=== PATIENT | male | born 1930 | race Caucasian/White ===

== ENCOUNTER 2017-01-29 15:09 | Inpatient (IN) | payer OTHER ==
[~2017-01-29] VITALS: Ht 182.9 cm; Wt 92.1 kg
--- NOTE | ~2017-01-29 | EKG ---
[address] [place] [address] ELECTROCARDIOGRAM REPORT Name: RAY LUNDY Room #: 459-P ADM IN M.R.#: [id number] Admission: 01/29/17 Attend Phys: Jatin Moreira DO Discharge: Date of : 34 Report #: [id number] THIS REPORT FOR: //name// [facility] ED Test Date: 2017-01-29 Test Time: 15:24:31 Pat Name: RAY LUNDY Department: Room: [facility] Gender: M Production Mechanic: ping : 1930 Requested By: Rochelle Harden Order Number: [id number] MD: Alex Silva Measurements Intervals Lawn Rate: 121 P: 77 ME: 153 QRS: 50 QRSD: 91 T: -15 QT: 304 QTc: 432 Interpretive Statements Sinus tachycardia with atrial premature complexes Nonspecific T abnormalities, diffuse leads Compared to ECG 02/16/1996 08:07:00 Atrial premature complexes now present nonspecific change in the ST and T-wave segments Electronically Signed On 01-31-2017 13:36:34 CDT by Alex Silva [email or web address] <ELECTRONICALLY SIGNED> By: Alex Silva MD, [facility] 01/31/17 1336 1524 1524 Alex Silva MD, [facility] /EPI
--- NOTE | ~2017-01-29 | HC ---
[facility] [place] [address] CONSULTATION Name: RAY LUNDY [place] Room #: 459-P [facility] IN M.R.#: [id number] Admission: 01/29/17 Attend Phys: Jatin Moreira, Discharge: 02/03/17 Date of : 34 Report #: [id number] THIS REPORT FOR: //name// CC: Ny Moreira REASON FOR CONSULTATION: I was asked to evaluate concerning extensive gingivitis in the setting of CLL and chemotherapy. HISTORY OF PRESENT ILLNESS: The patient is an 86-year-old who was admitted on 01/29/2017 with a several week history of low-grade fevers. He has been treated for CLL on ibrutinib since October. He has tolerated his treatment fairly well. About a week ago, he developed acute pain in his mouth, mostly on the right side. Developed extensive ulcerations to his gingiva. He was taken fairly quickly to [facility] for biopsy. This was performed four days ago and I am awaiting the results of the biopsy. He has been treating himself with topical therapy without much benefit. He has had anorexia and significant amount mouth pain with no swelling in his neck. Denies any nausea, vomiting or diarrhea. No other mucositis changes identified. He has had nonproductive cough. Mild shortness of breath. No chest pain. No dysuria or frequency. No other skin rashes or obvious adenopathy that he has detected. He denies any recent travel. No history of oral herpes lesions. No HIV risk factors. He is retired from factory and management work. ALLERGIES: None known. MEDICATIONS: As noted on his MAR, now on vancomycin and cefepime as well as Filgrastim for his neutropenic fever. Medications also as noted on his MAR, having held his chemotherapy and Lupron. PAST MEDICAL HISTORY: In addition to his CLL diagnosis, he was recently diagnosed with prostate cancer and has had his prostate targets placed for radiation therapy. He had right knee arthroscopic surgery, tonsillectomy, mastoidectomy, hernia surgery, hypertension, bronchitis, pneumonia, right elbow bursitis. FAMILY HISTORY: Noncontributory. SOCIAL HISTORY: Minimal alcohol intake. No tobacco use. REVIEW OF SYSTEMS: As noted above with no additions. PHYSICAL EXAMINATION: VITAL SIGNS: He is afebrile, hemodynamically stable. GENERAL: He is alert and cooperative. He was ambulatory. NEUROLOGIC: Nonfocal. [address] [address] CONSULTATION Name: RAY LUNDY LORENA Room #: 459-P [facility] IN ..#: [id number] Admission: 01/29/17 Attend Phys: Jatin Moreira DO Discharge: 02/03/17 Date of : 34 Report #: [id number] HEENT: Remarkable for extensive mucositis involving his gingiva both upper and lower regions. EXTREMITIES: He had some swelling to his soft palate on the right. Small nodes in the mandibular region in anterior cervical chain. I did not appreciate any supraclavicular or axillary adenopathy. NECK: Supple. LUNGS: Clear. HEART: Regular, without murmur. ABDOMEN: Soft and nontender. I did not appreciate any hepatosplenomegaly. LABORATORY STUDIES: Oxygen saturation was normal on 3 L per nasal cannula. Sodium 126, potassium 3.0, bicarbonate 23, creatinine 1.1, ALT 100, AST 70, bilirubin 0.6, alkaline phosphatase 134, albumin at 2. Hemoglobin 8.4; platelet count 277,000; WBC 31,000 with ANC 300. He is now on Filgrastim. IgG 1545. Vancomycin trough 5. MRSA screen negative. Urinalysis unremarkable. Chest x-ray was clear. Blood and urine cultures are negative so far. Parvovirus antibody pending. IMPRESSION: An 86-year-old with chronic lymphocytic leukemia and prostate cancer on chemotherapy with extensive oral mucositis. Has neutropenic fever, which has improved with antibiotic therapy, although he remains neutropenic. His immunoglobulin levels are adequate. Source of his fever, I suspect mucositis, most likely. Cause of the mucositis, I suspect related to his chemotherapy. Outside chance, we are also dealing with a secondary infection. It is not typical for herpes simplex or fungal infection. This likely is contributing to his fever. Recommend swabbing his mouth for viral culture and PCR. We will obtain path reports from [facility] and continue with pain management so that he can improve his nutrition as chemotherapy is on hold and he continues on Filgrastim to improve his white count. His antibiotics will be continued including vancomycin with adjusted dosing, gram-negative coverage as well as antifungal and acyclovir. <ELECTRONICALLY SIGNED> By: Jeffy Garibay MD 02/03/172051 1415 [id number] Jeffy Garibay MD /nt
[2017-01-29 15:09] VITALS: BP 122/56
[~2017-01-29 15:09] MED LIST: ASPIR 8181 MG PO; CADUET 10 MG-41 EACH PO; CO Q-10100 MG PO; FISH OIL 1,001000 M2 PO; KLOR-CON 1010 MEQ PO; LUPRON DEPOT11.25 MG IM; NEPHROCAPS SOFT1 CAP PO; UNICOMPLEX M TA1 TA1 PO; VITAMIN C120 GM PO; VITAMIN D2400 UNIT PO
[2017-01-29 15:38] LABS: HEMATOCRIT 21.2 % (42.0-52.0); HEMOGLOBIN 7.2 gm/dL (14.0-18.0); MCHC 33.8 g/dL (28.0-37.0); MCV 91.9 fL (80.0-100.0); PLATELET COUNT 288 thou/uL (150-400); RBC 2.31 mil/uL (4.50-6.00); RDW 21.7 % (10.5-14.5)
[2017-01-29 15:40] LABS: MANUAL DIFF YES
[2017-01-29] MEDS ORDERED: VITAMIN D3400 UNIT PO (15:40)
[2017-01-29 15:41] LABS: WBC 46.5 thou/uL (4.0-11.0)
[2017-01-29 15:45] LABS: CALCIUM 9.4 mg/dL (8.5-10.1); CREATININE 1.2 mg/dL (0.7-1.3); POTASSIUM 3.4 mmol/L (3.5-5.1)
[2017-01-29 15:51] LABS: ALBUMIN 2.5 g/dL (3.4-5.0); TOTAL BILIRUBIN 0.5 mg/dL (<0.1-1.0); TOTAL PROTEIN 7.7 g/dL (6.4-8.2)
[2017-01-29 16:02] LABS: ABSOLUTE NEUTROPHILS 0.5 thou/uL (1.4-8.2); TOTAL CELL COUNT 100
[2017-01-29 16:04] LABS: ANISOCYTOSIS 2+; HYPOCHROMASIA SLIGHT; POLYCHROMASIA OCCASIONAL
[2017-01-29 17:23] VITALS: BP 129/60
[2017-01-29 17:45] VITALS: BP 150/64
[2017-01-29 18:01] LABS: URINE BILIRUBIN NEGATIVE (Negative); URINE BLOOD 2+ (Negative); URINE COLOR YELLOW; URINE GLUCOSE-RANDOM* NEGATIVE (Negative); URINE KETONES NEGATIVE (Negative); URINE NITRITE NEGATIVE (Negative); URINE PROTEIN (DIPSTICK) 2+ (Negative)
[2017-01-29 18:10] LABS: SQUAMOUS None Seen /LPF (0-3)
[2017-01-29 18:11] LABS: BACTERIA 1-9 Few /HPF (None Seen); CASTS None Seen /LPF (None Seen); CRYSTALS None Seen /LPF (None Seen); URINE RBC 0-2 Rare /HPF (0-2); URINE WBC 0-5 Rare /HPF (0-5)
[2017-01-29 18:21] VITALS: BP 112/56
[2017-01-29 19:32] VITALS: BP 150/64
[2017-01-30] VITALS (13 sets, daily range): BP systolic 102–152; BP diastolic 60–77
[2017-01-30 05:27] LABS: RBC 2.01 mil/uL (4.50-6.00)
[2017-01-30 05:29] LABS: MCH 30.8 pg (26.0-34.0); MCHC 32.9 g/dL (28.0-37.0); MCV 93.6 fL (80.0-100.0); PLATELET COUNT 242 thou/uL (150-400)
[2017-01-30 05:31] LABS: MANUAL DIFF YES
[2017-01-30 05:32] LABS: HEMATOCRIT 18.8 % (42.0-52.0); HEMOGLOBIN 6.2 gm/dL (14.0-18.0); WBC 31.5 thou/uL (4.0-11.0)
[2017-01-30 05:46] LABS: CALCIUM 8.6 mg/dL (8.5-10.1); CREATININE 1.1 mg/dL (0.7-1.3); MAGNESIUM 1.7 mg/dL (1.8-2.4); TOTAL BILIRUBIN 0.6 mg/dL (<0.1-1.0); TOTAL PROTEIN 6.5 g/dL (6.4-8.2)
[2017-01-30 11:40] LABS: ABSOLUTE NEUTROPHILS 0.3 thou/uL (1.4-8.2); TOTAL CELL COUNT 100
[2017-01-30 11:44] LABS: ATYPICAL LYMPHS 17 %
[2017-01-30 11:47] LABS: ANISOCYTOSIS 2+; POLYCHROMASIA OCCASIONAL
[2017-01-31 05:14] VITALS: BP 142/76
[2017-01-31 07:28] VITALS: BP 129/79
[2017-01-31 07:47] LABS: HEMATOCRIT 25.5 % (42.0-52.0); HEMOGLOBIN 8.4 gm/dL (14.0-18.0); MANUAL DIFF YES; MCH 30.5 pg (26.0-34.0); MCHC 33.1 g/dL (28.0-37.0); MCV 92.4 fL (80.0-100.0); PLATELET COUNT 277 thou/uL (150-400); RBC 2.76 mil/uL (4.50-6.00); WBC 31.4 thou/uL (4.0-11.0)
[2017-01-31 12:22] LABS: ABSOLUTE NEUTROPHILS 0.9 thou/uL (1.4-8.2); TOTAL CELL COUNT 100
[2017-01-31 12:28] LABS: ATYPICAL LYMPHS 20 %
[2017-01-31 12:50] LABS: ANISOCYTOSIS 2+; POLYCHROMASIA OCCASIONAL
[2017-01-31 13:16] VITALS: BP 122/66
[2017-01-31 15:39] VITALS: BP 128/90
[2017-01-31 20:34] VITALS: BP 139/72
[2017-02-01 04:51] LABS: HEMATOCRIT 27.9 % (42.0-52.0); HEMOGLOBIN 9.2 gm/dL (14.0-18.0); MCH 30.6 pg (26.0-34.0); MCV 92.8 fL (80.0-100.0); PLATELET COUNT 308 thou/uL (150-400); RBC 3.01 mil/uL (4.50-6.00); RDW 19.2 % (10.5-14.5); WBC 37.4 thou/uL (4.0-11.0)
[2017-02-01 05:00] LABS: CALCIUM 8.8 mg/dL (8.5-10.1); CREATININE 0.7 mg/dL (0.7-1.3); POTASSIUM 3.2 mmol/L (3.5-5.1)
[2017-02-01 05:12] LABS: MANUAL DIFF YES
[2017-02-01 05:56] VITALS: BP 131/74
[2017-02-01 08:44] VITALS: BP 130/77
[2017-02-01 08:48] LABS: ABSOLUTE NEUTROPHILS 0.4 thou/uL (1.4-8.2); PLATELET ESTIMATE NORMAL; TOTAL CELL COUNT 100
[2017-02-01 08:49] LABS: ANISOCYTOSIS 1+; ATYPICAL LYMPHS 20 %; HYPOCHROMASIA 1+
[2017-02-01 12:01] VITALS: BP 131/76
[2017-02-01 17:12] VITALS: BP 134/79
[2017-02-01 19:10] VITALS: BP 145/84
[2017-02-02 03:34] VITALS: BP 128/84
[2017-02-02 08:08] VITALS: BP 127/69
[2017-02-02 12:34] VITALS: BP 135/72
[2017-02-02 12:54] LABS: CALCIUM 9.5 mg/dL (8.5-10.1); CREATININE 0.9 mg/dL (0.7-1.3)
[2017-02-02 17:44] VITALS: BP 130/85
[2017-02-02 19:50] VITALS: BP 119/78
[2017-02-03 03:43] VITALS: BP 120/79
[2017-02-03 07:39] VITALS: BP 115/67
[2017-02-03 08:28] LABS: HEMATOCRIT 29.9 % (42.0-52.0); HEMOGLOBIN 9.8 gm/dL (14.0-18.0); MCH 30.1 pg (26.0-34.0); MCHC 32.8 g/dL (28.0-37.0); MCV 91.9 fL (80.0-100.0); RBC 3.25 mil/uL (4.50-6.00); RDW 19.6 % (10.5-14.5)
[2017-02-03 08:47] LABS: PLATELET COUNT 202 thou/uL (150-400)
[2017-02-03 08:48] LABS: MANUAL DIFF YES
[2017-02-03 08:49] LABS: WBC 47.5 thou/uL (4.0-11.0)
[2017-02-03 09:53] LABS: ABSOLUTE NEUTROPHILS 2.4 thou/uL (1.4-8.2); TOTAL CELL COUNT 100
[2017-02-03 09:57] LABS: ANISOCYTOSIS 2+
[2017-02-03 09:58] LABS: POLYCHROMASIA SLIGHT
[2017-02-03 10:00] LABS: ATYPICAL LYMPHS 20 %
[2017-02-03 13:08] LABS: PARVOVIRUS IGG 2.9 index (0.0-0.8); PARVOVIRUS IGM 0.1 index (0.0-0.8)
[2017-02-03 14:01] VITALS: BP 127/80
[2017-02-03] MEDS ORDERED: ACETAMINOPHEN325 M1 PO (15:33)
[2017-02-03] MEDS ORDERED: AMLODIPINE BESY10 MG PO (15:33)
[2017-02-03] MEDS ORDERED: K-DUR 20 MEQ T20 MEQ PO (15:33)
[2017-02-03] MEDS ORDERED: PERIDEX 0.12%473 M1 SWISH&SPIT (15:33)
[2017-02-03] MEDS ORDERED: MIRALAX17 GM PO (15:33)
[2017-02-03] MEDS ORDERED: PHENASEPTIC1 BOT MUCOUS MEM (15:33)
[2017-02-03] MEDS ORDERED: VALTREX 500 MG500 MG PO (15:42)
[2017-02-03] MEDS ORDERED: DIFLUCAN200 MG PO (15:46)
[2017-02-03] MEDS ORDERED: AUGMENTIN 875-1 EACH PO (15:48)
[2017-02-03 15:53] VITALS: BP 127/80
[2017-02-06 07:02] LABS: HSV PCR SOURCE MOUTH
== END 2017-02-03 16:17 | disposition home or self-care (01) | DRG 871 ==
LOC: ER 15:09 → EROBS 17:08 → 4W 17:08 → ENTRNSPT 02-03 16:11 → 4W 02-03 16:17
PROVIDERS: Internal Medicine Endocrinology, Diabetes & Metabolism; Internal Medicine Geriatric Medicine; Internal Medicine Hematology & Oncology; Nurse Practitioner; Nurse Practitioner Family; Specialist
PROC: 30233N1 Transfusion of Nonautologous Red Blood Cells into Peripheral Vein, Percutaneous Approach (ICD-10-PCS; principal; 2017-01-30)
DX: A41.9 Sepsis, unspecified organism (principal); E43 Unspecified severe protein-calorie malnutrition; E87.1 Hypo-osmolality and hyponatremia; C91.10 Chronic lymphocytic leukemia of B-cell type not having achieved remission; K12.30 Oral mucositis (ulcerative), unspecified; D70.9 Neutropenia, unspecified; R50.81 Fever presenting with conditions classified elsewhere; I10 Essential (primary) hypertension; C61 Malignant neoplasm of prostate; D64.9 Anemia, unspecified; E87.6 Hypokalemia; K59.00 Constipation, unspecified; Z90.49 Acquired absence of other specified parts of digestive tract; Z79.899 Other long term (current) drug therapy; Z68.27 Body mass index [BMI] 27.0-27.9, adult
CPT/HCPCS: 10045

== ENCOUNTER 2017-11-25 01:02 | Emergency (ER) | payer OTHER ==
[~2017-11-25] VITALS: Ht 182.9 cm; Wt 87.1 kg
[~2017-11-25 01:02] MED LIST changes: +ACETAMINOPHEN325 M1 PO; +AMLODIPINE BESY10 MG PO; +AUGMENTIN 875-1 EACH PO; +DIFLUCAN200 MG PO; +IMBRUVICA140 M1 PO; +K-DUR 20 MEQ T20 MEQ PO; +MIRALAX17 GM PO; +PERIDEX 0.12%473 M1 SWISH&SPIT; +PHENASEPTIC1 BOT MUCOUS MEM; +VALTREX 500 MG500 MG PO; +VITAMIN D3400 UNIT PO
[2017-11-25] MEDS ORDERED: VITAMIN B122500 MCG PO (01:18)
[2017-11-25 01:57] LABS: HEMATOCRIT 26.5 % (42.0-52.0); MCH 30.8 pg (26.0-34.0); MCHC 33.8 g/dL (28.0-37.0); PLATELET COUNT 231 thou/uL (150-400); RBC 2.91 mil/uL (4.50-6.00); RDW 19.7 % (10.5-14.5); WBC 33.7 thou/uL (4.0-11.0)
[2017-11-25 02:04] LABS: CALCIUM 9.1 mg/dL (8.5-10.1); POTASSIUM 3.9 mmol/L (3.5-5.1)
[2017-11-25 02:10] LABS: ALBUMIN 3.4 g/dL (3.4-5.0); MAGNESIUM 1.9 mg/dL (1.8-2.4); TOTAL BILIRUBIN 0.3 mg/dL (<0.1-1.0); TOTAL PROTEIN 7.5 g/dL (6.4-8.2); URIC ACID* 3.3 mg/dL (2.6-7.2)
[2017-11-25 02:21] LABS: ABSOLUTE NEUTROPHILS 2.4 thou/uL (1.4-8.2); ANISOCYTOSIS 1+; MACROCYTES 1+
[2017-11-25 02:22] LABS: LARGE PLATELETS RARE
[2017-11-25] MEDS ORDERED: TRAMADOL 50 MG50 MG PO (02:47)
[2017-11-25] MEDS ORDERED: NAPROXEN375 MG PO (02:47)
[2017-11-25 03:15] VITALS: BP 148/76
== END 2017-11-25 03:14 | disposition home or self-care (01) ==
LOC: ER 01:02
PROVIDERS: Emergency Medicine
DX: M25.561 Pain in right knee (principal); M25.522 Pain in left elbow; C91.10 Chronic lymphocytic leukemia of B-cell type not having achieved remission; I10 Essential (primary) hypertension; M19.90 Unspecified osteoarthritis, unspecified site; Z87.01 Personal history of pneumonia (recurrent); Z85.46 Personal history of malignant neoplasm of prostate

== ENCOUNTER → 2020-01-09 | Outpatient (CLI) | payer OTHER ==
[~2020-01-09] MED LIST changes: +NAPROXEN375 MG PO; +TRAMADOL 50 MG50 MG PO; +VITAMIN B122500 MCG PO
== END ==
LOC: RAD 14:10
PROVIDERS: ATTEND Family Medicine
DX: R05 Cough (principal)